=== PATIENT | male | born 1995 | race Caucasian/White ===

== ENCOUNTER 2018-04-04 08:47 | Emergency (ER) | payer OTHER ==
[2018-04-04] MEDS: ONDANSETRON (ODT) 4 MG TAB ODT (10:30)
[2018-04-04] MEDS: HYDROCODONE/APAP (5/325) TAB PO (10:31)
== END 2018-04-04 10:41 | disposition home or self-care (01) ==
LOC: FTE 08:47
DX: S62.326A Displaced fracture of shaft of fifth metacarpal bone, right hand, initial encounter for closed fracture (principal); F17.210 Nicotine dependence, cigarettes, uncomplicated; W22.8XXA Striking against or struck by other objects, initial encounter; Y92.9 Unspecified place or not applicable
CPT/HCPCS: 29125; 73130-RT; 99283-25

== ENCOUNTER 2018-05-10 13:31 | Day surgery (SDC) | payer OTHER ==
[2018-05-10] MEDS: LACTATED RINGER'S 1,000 ML IV* (06:00)
[~2018-05-10 13:31] MED LIST: CEFAZOLIN 2 GM/50 ML (PMX) 50 ML IVPB
[2018-05-10] MEDS ORDERED: FENTAnyl 50 MCG/ML VIAL (15:54)
[2018-05-10] MEDS ORDERED: MIDAZOLAM 1 MG/ML 2 ML INJ (15:54)
[2018-05-10] MEDS: LIDOCAINE 1% (MDV) 20 ML INJ (16:22)
[2018-05-10] MEDS: BUPIVACAINE 0.5% (SDV) 30 ML INJ (16:22)
[2018-05-10] MEDS ORDERED: LIDOCAINE 2% (SDV) 5 ML INJ (16:43)
[2018-05-10] MEDS ORDERED: CEFAZOLIN 1 GM INJ (16:43)
[2018-05-10] MEDS ORDERED: ONDANSETRON 4 MG INJ (16:43)
[2018-05-10] MEDS ORDERED: ROPIVACAINE 0.5 % 30 ML VIAL (16:43)
[2018-05-10] MEDS ORDERED: PROPOFOL 20 ML (16:43)
[2018-05-10] MEDS: MEPERIDINE 25 MG INJ IV (17:47)
[2018-05-10] MEDS ORDERED: ONDANSETRON 4 MG INJ IV (18:00)
[2018-05-10] MEDS ORDERED: HYDROmorphONE 1 MG/5 ML IV SYRINGE IV ×2 (18:00)
[2018-05-10] MEDS ORDERED: METOCLOPRAMIDE 10 MG INJ IV (18:00)
[2018-05-10] MEDS ORDERED: DIPHENHYDRAMINE 50 MG INJ IV (18:00)
[2018-05-10] MEDS: FENTAnyl 50 MCG/ML VIAL IV (18:04)
== END 2018-05-10 18:50 | disposition home or self-care (01) ==
LOC: SDS 13:31
DX: S62.324D Displaced fracture of shaft of fourth metacarpal bone, right hand, subsequent encounter for fracture with routine healing (principal); X58.XXXD Exposure to other specified factors, subsequent encounter
CPT/HCPCS: 26615; 73140